=== PATIENT | female | born 1995 | race Caucasian/White ===

== ENCOUNTER 2022-05-06 09:45 | Emergency (ER) | payer OTHER, SELFPAY ==
--- NOTE | 2022-05-06 09:47 | ED.EAR ---
HPI - Ear Problem General Chief complaint: Ear Stated complaint: Right Ear Irritation Time Seen by Provider: 05/06/22 09:47 Source: patient Mode of arrival: ambulatory Limitations: no limitations History of Present Illness HPI Narrative: Noni is a 26 year old female patient presenting to the clinic today with complaints of right ear pain and constipation concerns. She reports that her right ear has been hurting for approximately 1 week and she feels as though she has a sore in her ear. Had an appointment with ears Nose and Throat doctor today however the appointment was canceled so she came into the urgent care. Also is concerned about having some constipation. States she is having small bowel movements that are hard like rat pellets. He is passing gas. She denies any abdominal pain at this time. No nausea or vomiting Related Data Home Medications Medication Instructions Recorded Confirmed dextroamphetamine-amphetamine 20 20 mg PO DAILY 05/06/22 05/06/22 mg tablet Allergies Allergy/AdvReac Type Severity Reaction Status Date / Time red dye Allergy Other Verified 05/06/22 09:52 Review of Systems Review of Systems: Pertinent positives per HPI. Patient denies any fever, chills, rash, headache, visual changes, dizziness, cough, shortness of breath, chest pain, palpitations, nausea, vomiting, diarrhea, abdominal pain, or any urinary issues. PMFSH Comments At the time of my signature, I reviewed and agree with the nursing past medical, surgical, social, and family history. There is no relevant family history pertinent to the patient complaint. Exam Narrative: General: Well-developed, well nourished, in no apparent distress Head: Normocephalic, atraumatic Eyes: Pupils equally round and reactive to light bilaterally, EOM intact, sclera and conjunctive clear, no discharge, lids normal Ears: TMs intact and clear, left ear canals clear, right ear canal with inflammation and redness, tenderness to palpation over the external ear, no drainage, grossly hearing normal. Nose: Nares patent, no discharge, no inflammation, no sinus tenderness. Mouth: Oral pharynx without lesions or masses, good dentition, MMM. Neck: Supple, trachea midline, no enlargement of anterior or posterior cervical nodes, no thyroid masses or goiter palpable. Cardio: Regular rate and rhythm, s1 and s2 normal, no murmur appreciated. Resp: Clear to auscultation bilaterally, no rhonchi, rales, wheezing or rubs Abdomen: Soft, pliable, no distension, bowel sounds present all 4 quadrants, nontender to palpation, no organomegaly, no CVAT tenderness Course Course Emergency Course: Portions of this record may have been created with voice recognition software. Level of Care: Express Care Visit Vital Signs Vital signs: Vital signs reviewed Medical Decision Making MDM Narrative Medical decision making narrative: At the time of visit patient is resting comfortably on the exam table. I suspect the patient has right otitis externa as well as constipation. Will send in prescription for ofloxacin ear drops and recommend using MiraLax daily for constipation. Supportive measures were discussed with the patient she voiced understanding discharge instructions agrees to treatment plan. Differential Diagnosis Differential Diagnosis: Otitis externa, otitis media, eustachian tube dysfunction, serous otitis, constipation, obstruction Discharge Plan Discharge Clinical Impression: Otitis externa of right ear Qualifiers: Otitis externa type: diffuse Chronicity: acute Qualified Code(s): H60.311 - Diffuse otitis externa, right ear Constipation Qualifiers: Constipation type: unspecified constipation type Qualified Code(s): K59.00 - Constipation, unspecified Patient Disposition: Home, Self-Care Condition: Stable Instructions: Antibiotic Form, Constipation (ED), Swimmer's Ear (ED) Additional Instructions: Increase fluids and stay well hydrated [place]
[2022-05-06 09:57] VITALS: BP 140/92; PULSE 82; RESP 16; TEMP 36.6; O2SAT 100
== END 2022-05-06 10:07 | disposition home or self-care (01) ==
LOC: EXPCOLL 09:51
PROVIDERS: Emergency Provider Nurse Practitioner Family; PCP Nurse Practitioner Family
DX: H60.311 Diffuse otitis externa, right ear (principal); K59.00 Constipation, unspecified
CPT/HCPCS: 99213; G0463